=== PATIENT | male | born 1945 | race Caucasian/White ===

== ENCOUNTER 2019-03-31 13:35 | Inpatient (IN) | payer OTHER ==
[~2019-03-31] VITALS: Ht 182.9 cm; Wt 67.1 kg
[~2019-03-31 13:35] MED LIST: ACET325 PO; ACIDOPHILUS PO; AMLO5 PO; ASPI325 PO; ASPI325EC PO; ASPI81CH; ATEN25 PO; ATENOLOL-? DOSE; CEPH500 PO; CIPR500 PO; CYAN1000 PO; DOCU100 PO; FERR325 PO; FURO20 PO; HYDCHL25; LISI10; LISI20 PO; LISI5 PO; MAGOXI400 PO; METR500 PO; MULVITB&C PO; MULVITMIND PO; NITR100 PO; OMEP10ER; OMEP10ER PO; OMEP20ER; OMEP20ER PO; POTA10T PO; PROBIOTIC; Prilosec Otc20 MG PO; QUET25 PO; SULTRIDS PO; TAMS.4ER PO; THIA100 PO; VANC250 PO; WARF1 PO
[2019-03-31 14:21] LABS: Hematocrit 32.3 % (37.0-53.0); Hemoglobin 11.1 g/dL (13.5-17.5); Mean Corpuscular HGB 33.8 pg (26.0-34.0); Mean Corpuscular HGB Conc 34.4 g/dL (31.5-36.5); Mean Corpuscular Volume 99 fL (80-100); Mean Platelet Volume 11.7 fL (9.1-12.4); Platelet Count 86 K/mm3 (150-400); RDW Coefficient Variation 12.9 % (11.7-14.2); RDW Standard Deviation 46.5 fL (35.1-46.3); Red Blood Cell Count 3.28 M/mm3 (4.30-5.90); White Blood Cell Count 13.17 K/mm3 (4.00-11.30)
[2019-03-31 14:29] LABS: Albumin, Blood 3.3 g/dL (3.4-5.0); Albumin/Globulin Ratio 0.7 (0.8-1.8); Bilirubin, Total 0.8 mg/dL (0.1-1.0); Bun/Creatinine Ratio 12.5 (12.0-20.0); Calcium, Blood 8.4 mg/dL (8.5-10.1); Creatinine, Blood 1.36 mg/dL (0.60-1.20); Globulin, Blood 4.5 g/dL (2.2-4.0); Potassium, Blood 3.6 mmol/L (3.5-5.5); Total Protein, Blood 7.8 g/dL (6.4-8.2)
[2019-03-31] MEDS ORDERED: DULO60 PO (14:34)
[2019-03-31] MEDS ORDERED: Ferrous Glucon324 M1 PO (14:35)
[2019-03-31] MEDS ORDERED: NIFE30ER PO (14:35)
[2019-03-31] MEDS ORDERED: FOLI1 PO (14:35)
[2019-03-31] MEDS ORDERED: LISI20 PO (14:35)
[2019-03-31] MEDS ORDERED: Thiamine HCl100 MG PO (14:37)
[2019-03-31] MEDS ORDERED: NITR100CA (14:37)
[2019-03-31] MEDS ORDERED: OMEPRAZOLE20 MG PO (14:37)
[2019-03-31 14:59] LABS: BASOPHILS PERCENT MAN 0 % (0-2); EOSINOPHILS ABSOLUTE MAN 0.26 K/mm3 (0.00-0.68); EOSINOPHILS PERCENT MAN 2 % (0-6); LYMPHOCYTES ABSOLUTE MAN 1.05 K/mm3 (0.84-5.20); LYMPHOCYTES PERCENT MAN 8 % (21-46); MONOCYTES ABSOLUTE MAN 3.02 K/mm3 (0.16-1.47); MONOCYTES PERCENT MAN 23 % (4-13); NEUTROPHILS ABSOLUTE MAN 8.82 K/mm3 (1.96-9.15); SEG NEUTROPHILS PERCENT MAN 67 % (41-73); TOTAL CELLS COUNTED 100
[2019-03-31 15:05] LABS: Source, Urine Catheter
[2019-03-31 15:09] LABS: Bilirubin, Urine Neg (Neg); Blood, Urine 5+ (Neg); Glucose Qualitative, Urine Neg (Neg); Ketones, Urine Neg (Neg); Leukocyte Esterase, Urine 3+ (Neg); Nitrite, Urine Neg (Neg); Protein, Urine 3+ (Neg); Urobilinogen, Urine NORM (Normal)
[2019-03-31 15:26] LABS: Appearance, Urine Cloudy (Clear); Color, Urine Yellow (P-Yellow)
[2019-03-31 15:28] LABS: Amorphous Light (0-Heavy); Bacteria Many /hpf; Red Blood Cells, Urine 25-50 /hpf (0-2); Squamous Epithelial Cells Mod /hpf (Few)
[2019-03-31 15:29] LABS: White Blood Cells, Urine 50-100 /hpf (0-5)
[2019-03-31] MEDS ORDERED: Aspirin EC81 MG PO (16:04)
[2019-03-31] MEDS ORDERED: THERA1 EACH PO (16:05)
[2019-03-31] MEDS ORDERED: Vitamin D2000 UNIT PO (16:05)
[2019-04-01 05:11] LABS: BASOPHILS PERCENT AUTO 0 % (0-2); EOSINOPHILS ABSOLUTE AUTO 0.08 K/mm3 (0.00-0.68); EOSINOPHILS PERCENT AUTO 1 % (0-6); Hemoglobin 10.9 g/dL (13.5-17.5); IMMATURE GRAN ABSOLUTE AUTO 0.04 K/mm3 (0.00-0.10); IMMATURE GRAN PERCENT AUTO 1 % (0-1); LYMPHOCYTES ABSOLUTE AUTO 1.21 K/mm3 (0.84-5.20); LYMPHOCYTES PERCENT AUTO 19 % (21-46); MONOCYTES ABSOLUTE AUTO 2.26 K/mm3 (0.16-1.47); MONOCYTES PERCENT AUTO 35 % (4-13); Mean Corpuscular HGB 33.9 pg (26.0-34.0); Mean Corpuscular HGB Conc 34.1 g/dL (31.5-36.5); Mean Corpuscular Volume 99 fL (80-100); Mean Platelet Volume 12.2 fL (9.1-12.4); NEUTROPHILS ABSOLUTE AUTO 2.84 K/mm3 (1.96-9.15); NEUTROPHILS PERCENT AUTO 44 % (41-73); Platelet Count 75 K/mm3 (150-400); RDW Coefficient Variation 13.1 % (11.7-14.2); RDW Standard Deviation 47.8 fL (35.1-46.3); Red Blood Cell Count 3.22 M/mm3 (4.30-5.90); White Blood Cell Count 6.43 K/mm3 (4.00-11.30)
--- NOTE | 2019-04-01 05:19 | NUR ---
SHIFT SUMMARY ARRIVED TO MEDICAL FLOOR @ . ORIENTED TO ROOM AND CALL SYSTEM. AT BEDSIDE. A/O, ABLE TO MAKE NEEDS KNOWN. COOPERATIVE WITH CARE. CALLS AND ANSWERS QUESTIONS APPROPRIATLEY. [place]Y [place]. STATES WENT TO [facility] X2 DAYS AGO; REFERRED TO UROLOGY CLINIC IN WHICH UROLOGIST CLEANED OUT URETHRA AND PLACED NGUYEN R/T RETENTION. OFTEN TIMES SELF-CATH'S AT HOME. APPEARED TO REST SOME OF SHIFT. NO ACUTE CHANGES NOTED AT THIS TIME. VSS/AFEBRILE. BED REMAINED IN LOWEST POSITION. CALL LIGHT AND BELONGINGS WITHIN REACH. REPORT TO ONCOMING RN.
[2019-04-01 05:30] LABS: Alanine Aminotransfer (ALT/SGP 15 U/L (12-78); Albumin, Blood 2.9 g/dL (3.4-5.0); Albumin/Globulin Ratio 0.7 (0.8-1.8); Alk Phos 100 U/L (50-136); Anion Gap 7 mmol/L (6-16); Aspartate Aminotrans (AST/SGOT 16 U/L (12-37); Bilirubin, Total 0.4 mg/dL (0.1-1.0); Blood Urea Nitrogen 16 mg/dL (8-24); CO2, Blood 26 mmol/L (21-32); Chloride, Blood 102 mmol/L (98-108); Creatinine, Blood 1.07 mg/dL (0.60-1.20); Glomerular Filtration Rate >60 (60-); Glucose, Blood 94 mg/dL (70-99); Potassium, Blood 3.4 mmol/L (3.5-5.5); Sodium, Blood 135 mmol/L (136-145); Total Protein, Blood 6.9 g/dL (6.4-8.2)
[2019-04-01] MEDS ORDERED: DOXY100 PO (11:00)
--- NOTE | 2019-04-01 15:01 | NUR ---
SHIFT SUMMARY PT AWAKE DURING SHIFT REPORT. PLEASANT AND CO-OP WITH CARE. DENIED NEEDS. VSS. NO C/O DIZZINESS. CALL LT IN REACH. PT ABLE TO AMBULATE TO BTHRM WITH CANE AND 1P ASSIST FOR BM. NGUYEN CATH WITH LEG BAG FROM [facility]. DR RANDOLPH IN TO SEE PT THIS AM. D/C ORDERS PLACED. PT'S IN AFTER DR RANDOLPH LEFT, REPORTING THAT PT IS NONCOMPLIANT AT HOME WITH CATHETER CARE AND TAKING CARE OF HIMSELF. REPORTED PT WANTING TO DRINK ALCOHOL AND WANTING HER TO BUY BEER, CAUSING CONFLICT WHEN SHE DECLINES. ALSO REPORTED PT IS NOT CAREFUL ABOUT INFECTION CONTROL WHEN PERFORMING STRAIGHT CATH AT HOME AND LIES ABOUT FLUID INTAKE TO HER. DR RANDOLPH UPDATED. REPORTED THAT SHE WILL F/U WITH [facility] IN AM. IV TO RFA D/C'D WNL'S. TELE MX REMOVED AFTER MX TECH NOTIFIED OF D/C. PT WAITED FOR TO RETURN TO TAKE PT HOME THIS AFTERNOON. TAKEN OUT TO CAR VIA W/C BY SUZAN RN.
== END 2019-04-01 13:36 | disposition home or self-care (01) | DRG 871 ==
LOC: ER 13:35 → MEDS 16:58
PROVIDERS: Physician Assistant; ADMIT Internal Medicine
DX: A41.9 Sepsis, unspecified organism (principal); R65.21 Severe sepsis with septic shock; N39.0 Urinary tract infection, site not specified; I48.0 Paroxysmal atrial fibrillation; Z79.01 Long term (current) use of anticoagulants; F10.20 Alcohol dependence, uncomplicated; I10 Essential (primary) hypertension; N32.0 Bladder-neck obstruction; R33.9 Retention of urine, unspecified; Z87.891 Personal history of nicotine dependence
CPT/HCPCS: 36415; 71045; 80053; 81001; 83605; 85025; 87040; 87077; 87086; 87186; 93005; 93010; 96361; 96365; 99285-25; J0696; J1644; J7030; J7120

== ENCOUNTER 2021-03-14 17:54 | Inpatient (IN) | payer OTHER ==
[~2021-03-14] VITALS: Ht 177.8 cm; Wt 63.7 kg
[~2021-03-14 17:54] MED LIST changes: +Aspirin EC81 MG PO; +DOXY100 PO; +DULO60 PO; +FOLI1 PO; +Ferrous Glucon324 M1 PO; +NIFE30ER PO; +NITR100CA; +OMEPRAZOLE20 MG PO; +THERA1 EACH PO; +Thiamine HCl100 MG PO; +Vitamin D2000 UNIT PO
[2021-03-14 19:11] LABS: BASOPHILS ABSOLUTE AUTO 0.01 K/mm3 (0.00-0.23); BASOPHILS PERCENT AUTO 0 % (0-2); EOSINOPHILS ABSOLUTE AUTO 0.05 K/mm3 (0.00-0.68); EOSINOPHILS PERCENT AUTO 1 % (0-6); Hematocrit 35.2 % (37.0-53.0); Hemoglobin 12.1 g/dL (13.5-17.5); Mean Corpuscular HGB 32.7 pg (26.0-34.0); Mean Corpuscular HGB Conc 34.4 g/dL (31.5-36.5); Mean Corpuscular Volume 95 fL (80-100); RDW Coefficient Variation 14.2 % (11.7-14.2); RDW Standard Deviation 49.6 fL (35.1-46.3); White Blood Cell Count 6.67 K/mm3 (4.00-11.30)
[2021-03-14 19:25] LABS: Alanine Aminotransfer (ALT/SGP 25 U/L (12-78); Albumin, Blood 3.8 g/dL (3.4-5.0); Albumin/Globulin Ratio 0.8 (0.8-1.8); Alk Phos 136 U/L (50-136); Anion Gap 14 mmol/L (6-16); Aspartate Aminotrans (AST/SGOT 35 U/L (12-37); Bilirubin, Total 0.9 mg/dL (0.1-1.0); Blood Urea Nitrogen 23 mg/dL (8-24); Bun/Creatinine Ratio 21.3 (12.0-20.0); CO2, Blood 19 mmol/L (21-32); Calcium, Blood 8.1 mg/dL (8.5-10.1); Chloride, Blood 97 mmol/L (98-108); Creatinine, Blood 1.08 mg/dL (0.60-1.20); Ethanol (Alcohol), Blood, Med <3 mg/dL; Globulin, Blood 4.8 g/dL (2.2-4.0); Glomerular Filtration Rate >60 (60-); Glucose, Blood 102 mg/dL (70-99); Potassium, Blood 4.3 mmol/L (3.5-5.5); Sodium, Blood 130 mmol/L (136-145); Total Protein, Blood 8.6 g/dL (6.4-8.2); Troponin I <0.015 ng/mL (0.000-0.040)
[2021-03-14 19:31] LABS: IMMATURE GRAN ABSOLUTE AUTO 0.04 K/mm3 (0.00-0.10); IMMATURE GRAN PERCENT AUTO 1 % (0-1); LYMPHOCYTES ABSOLUTE AUTO 1.16 K/mm3 (0.84-5.20); LYMPHOCYTES PERCENT AUTO 17 % (21-46); MONOCYTES ABSOLUTE AUTO 2.99 K/mm3 (0.16-1.47); MONOCYTES PERCENT AUTO 45 % (4-13); NEUTROPHILS ABSOLUTE AUTO 2.42 K/mm3 (1.96-9.15); NEUTROPHILS PERCENT AUTO 36 % (41-73)
[2021-03-14 19:35] LABS: Platelet Count 39 K/mm3 (150-400)
[2021-03-14] MEDS ORDERED: ATEN25 PO (20:10)
[2021-03-14] MEDS ORDERED: Acerola C500 MG PO (20:10)
[2021-03-14] MEDS ORDERED: CALCIUM CITRAT200 MG PO (20:11)
[2021-03-14 20:48] LABS: Source, Urine Clean Catch
[2021-03-14 20:51] LABS: Appearance, Urine Clear (Clear); Bilirubin, Urine Neg (Neg); Blood, Urine 5+ (Neg); Color, Urine Yellow (P-Yellow); Glucose Qualitative, Urine Neg (Neg); Ketones, Urine 2+ (Neg); Leukocyte Esterase, Urine 3+ (Neg); Nitrite, Urine Neg (Neg); Protein, Urine 3+ (Neg); Urobilinogen, Urine NORM (Normal)
[2021-03-14 20:53] LABS: SARS-Cov-2 (COVID-19) PCR, MMC POSITIVE (NEGATIVE)
[2021-03-14 20:57] LABS: Bacteria Many /hpf; White Blood Cells, Urine 25-50 /hpf (0-5)
[2021-03-14 20:58] LABS: Red Blood Cells, Urine 0-2 /hpf (0-2); Squamous Epithelial Cells Few /hpf (Few)
--- NOTE | 2021-03-15 06:25 | NUR ---
SHIFT SUMMARY PATIENT ALERT AND ORIENTED. HAD NO COMPLAINTS OF PAIN OR SHORTNESS OF BREATH. ON ROOM AIR. NO ACUTE ISSUES NOTED. CALL LIGHT WITHIN REACH. REPORT GIVEN TO ONCOMING RN.
[2021-03-15 06:54] LABS: BASOPHILS ABSOLUTE AUTO 0.01 K/mm3 (0.00-0.23); BASOPHILS PERCENT AUTO 0 % (0-2); EOSINOPHILS PERCENT AUTO 0 % (0-6); Hematocrit 34.2 % (37.0-53.0); Hemoglobin 11.9 g/dL (13.5-17.5); Mean Corpuscular HGB 33.8 pg (26.0-34.0); Mean Corpuscular HGB Conc 34.8 g/dL (31.5-36.5); Mean Corpuscular Volume 97 fL (80-100); RDW Coefficient Variation 14.5 % (11.7-14.2); RDW Standard Deviation 51.4 fL (35.1-46.3); Red Blood Cell Count 3.52 M/mm3 (4.30-5.90); White Blood Cell Count 9.49 K/mm3 (4.00-11.30)
[2021-03-15 06:56] LABS: IMMATURE GRAN PERCENT AUTO 1 % (0-1); LYMPHOCYTES ABSOLUTE AUTO 1.24 K/mm3 (0.84-5.20); LYMPHOCYTES PERCENT AUTO 13 % (21-46); MONOCYTES ABSOLUTE AUTO 5.99 K/mm3 (0.16-1.47); MONOCYTES PERCENT AUTO 63 % (4-13); NEUTROPHILS ABSOLUTE AUTO 2.15 K/mm3 (1.96-9.15); NEUTROPHILS PERCENT AUTO 23 % (41-73); Platelet Count 36 K/mm3 (150-400)
[2021-03-15 07:11] LABS: Albumin, Blood 3.2 g/dL (3.4-5.0); Albumin/Globulin Ratio 0.7 (0.8-1.8); Bilirubin, Total 0.6 mg/dL (0.1-1.0); Bun/Creatinine Ratio 19.5 (12.0-20.0); Creatinine, Blood 1.49 mg/dL (0.60-1.20); Globulin, Blood 4.5 g/dL (2.2-4.0); Magnesium, Blood 2.2 mg/dL (1.6-2.4); Potassium, Blood 3.7 mmol/L (3.5-5.5); Total Protein, Blood 7.7 g/dL (6.4-8.2)
[2021-03-15 07:30] LABS: BAND PERCENT MAN 1 % (0-8); BASOPHILS PERCENT MAN 0 % (0-2); EOSINOPHILS ABSOLUTE MAN 0.18 K/mm3 (0.00-0.68); EOSINOPHILS PERCENT MAN 2 % (0-6); LYMPHOCYTES ABSOLUTE MAN 1.42 K/mm3 (0.84-5.20); LYMPHOCYTES PERCENT MAN 15 % (21-46); MONOCYTES ABSOLUTE MAN 5.02 K/mm3 (0.16-1.47); MONOCYTES PERCENT MAN 53 % (4-13); NEUTROPHILS ABSOLUTE MAN 2.84 K/mm3 (1.96-9.15); SEG NEUTROPHILS PERCENT MAN 29 % (41-73); TOTAL CELLS COUNTED 100
--- NOTE | 2021-03-15 16:30 | NUR ---
CATHETER ORDER PT REPORTS HAVING URINARY RETENTION AT HOME AND SELF CATHS OCCATIONALLY. WHEN PT WAS BLADDER SCANNED, HE HAD 238 IN HIS BLADDER AFTER VOIDING. DR. HEBERT NOTIFIED OF THIS CONCERN AND ORDER FOR NGUYEN CATH WAS OBTAINED.
--- NOTE | 2021-03-15 17:30 | NUR ---
FEVER UPON ENTERING PT ROOM TO HANG FLUID, PT WAS DISORIENTED. TALKING ABOUT HELDER AND HER PLAN FOR A COLONOSCOPY ON THE . PT APPEARED TO BE UNCLEAR ON WHY HE WAS IN THE HOSPITAL WHICH WAS A CHANGE. TEMP TAKEN AND WAS 103.9. 650MG PO TYLENOL GIVEN. ICE APPLED TO HIS BODY AND A FAN PLACED OVERTOP OF HIM. TEMP REDUCED TO 102.7 NOW. BERNARDO IN PALLIATIVE CARE NOTIFIED PROVIDER AND A RECTAL TYLENOL WAS ORDERED TO GIVE ONE TIME. PT PHYSICALLY FEELS COOLER AND IS LESS DISORIENTED.
--- NOTE | 2021-03-15 18:46 | NUR ---
SHIFT SUMMARY TEMP DECREASED TO 101.5. ONE TIME 1000 MG TYLENOL GIVEN. ORIENTION HAS IMPROVED FROM HIS HIGHER FEVER. UPDATED BY PALLIATIVE CARE, BERNARDO. BED ALARM IN PLACE. REDNESS FOUND TO SACRUM. PT ENCOURAGED TO REPOSITION IN BED. NGUYEN ATTEMPTED, BUT WAS TOO LARGE A SIZE. COUDE LIKELY NEEDED. NO OTHER CHANGES IN ASSESSMENT AT THIS TIME. VS REVIEWED.
--- NOTE | 2021-03-15 22:17 | NUR ---
PATIENT REFUSING URINARY CATHETER AT THIS TIME. REPORTS HE IS VOIDING AND KNOWS IF HE IS RETAINING URINE. TM
--- NOTE | 2021-03-16 04:25 | NUR ---
SHIFT SUMMARY PATIENT HAD NO ACUTE CHANGES OBSERVED. AXO X 3 AND BEDREST. PATIENT VOIDING AND REFUSING NGUYEN PLACEMENT REPORTING HE KNOWS IF HE IS RETAINING. PIV REMAINS INTACT. VSS/LOW GRADE TEMP. DENIES PAIN, SOB, AND N/V. CALL LIGHT IN REACH. BED IN LOWEST POSITION. WILL CONTINUE TO MONITOR UNTIL DAY SHIFT NURSE ASSUME CARE.
[2021-03-16 04:54] LABS: BASOPHILS ABSOLUTE AUTO 0.01 K/mm3 (0.00-0.23); BASOPHILS PERCENT AUTO 0 % (0-2); EOSINOPHILS ABSOLUTE AUTO 0.01 K/mm3 (0.00-0.68); EOSINOPHILS PERCENT AUTO 0 % (0-6); Hematocrit 36.4 % (37.0-53.0); Hemoglobin 12.5 g/dL (13.5-17.5); Mean Corpuscular HGB 33.2 pg (26.0-34.0); Mean Corpuscular HGB Conc 34.3 g/dL (31.5-36.5); Mean Corpuscular Volume 97 fL (80-100); RDW Coefficient Variation 14.2 % (11.7-14.2); RDW Standard Deviation 50.4 fL (35.1-46.3); Red Blood Cell Count 3.76 M/mm3 (4.30-5.90)
[2021-03-16 05:11] LABS: Anion Gap 8 mmol/L (6-16); Blood Urea Nitrogen 21 mg/dL (8-24); Bun/Creatinine Ratio 21.3 (12.0-20.0); CO2, Blood 21 mmol/L (21-32); Calcium, Blood 8.1 mg/dL (8.5-10.1); Chloride, Blood 101 mmol/L (98-108); Creatinine, Blood 0.99 mg/dL (0.60-1.20); Glomerular Filtration Rate >60 (60-); Glucose, Blood 89 mg/dL (70-99); Sodium, Blood 130 mmol/L (136-145)
[2021-03-16 05:12] LABS: IMMATURE GRAN PERCENT AUTO 1 % (0-1); LYMPHOCYTES ABSOLUTE AUTO 1.32 K/mm3 (0.84-5.20); LYMPHOCYTES PERCENT AUTO 15 % (21-46); MONOCYTES ABSOLUTE AUTO 3.95 K/mm3 (0.16-1.47); MONOCYTES PERCENT AUTO 44 % (4-13); Mean Platelet Volume 13.9 fL (9.1-12.4); NEUTROPHILS ABSOLUTE AUTO 3.61 K/mm3 (1.96-9.15); NEUTROPHILS PERCENT AUTO 40 % (41-73); Platelet Count 30 K/mm3 (150-400)
--- NOTE | 2021-03-16 17:18 | NUR ---
PT HAS BEEN AOX4 AND COOPERATIVE OF CARE TODAY. PT DID NOT SPIKE A FEVER TODAY AND HAS BEEN FEELING MORE ALERT. PT WORKED WITH PT AND WAS ABLE TO STAND AT BEDSIDE. PT REPORTED HE NEEDED TO BE STRAIGHT CATHED AND DID NOT WANT A NGUYEN TO BE PLACED ORDER WAS GIVEN FROM DR ESCALANTE FOR PT TO SELF STRAIGHT CATH. PT DOES NEED SUPERVISION AND HELP FROM NURSE. PT ALSO HAS MULTIPLE LOOSE STOOL AND DR ESCALANTE ADDED MEDICTION TO EMAR. ORDER TO TREAT SKIN IRRITATION WAS ALSO ADDED TO EMAR. PT RESTING IN BED AT THIS TIME WITH CALL LIGHT IN REACH WILL CONTINUE TO MONITOR.
--- NOTE | 2021-03-17 03:00 | NUR ---
ACCESS SERVICES ASSISTANT SUMMARY HAS BEEN RESTING QUIETLY AT INTERVALS. DENIED PAIN AND LOSS OF FEELING. IVF OF NS CONTINUES AT 75 ML/HR. BUTTOCKS/COCCYX AREA RED DISCOLORATOIN AND NOTED SMALL OPEN AREA, MEPILEX APPLIED TO AREA FOR PROTECTION. CALL LIGHT IN REACH. ISOLATOIN PRECAUTIONS MAINTAINED.
[2021-03-17 05:31] LABS: BASOPHILS ABSOLUTE AUTO 0.01 K/mm3 (0.00-0.23); BASOPHILS PERCENT AUTO 0 % (0-2); EOSINOPHILS PERCENT AUTO 0 % (0-6); Hemoglobin 12.4 g/dL (13.5-17.5); Mean Corpuscular HGB Conc 34.4 g/dL (31.5-36.5); Mean Corpuscular Volume 96 fL (80-100); RDW Coefficient Variation 14.1 % (11.7-14.2); RDW Standard Deviation 49.8 fL (35.1-46.3); Red Blood Cell Count 3.76 M/mm3 (4.30-5.90); White Blood Cell Count 7.02 K/mm3 (4.00-11.30)
[2021-03-17 05:52] LABS: IMMATURE GRAN ABSOLUTE AUTO 0.09 K/mm3 (0.00-0.10); IMMATURE GRAN PERCENT AUTO 1 % (0-1); LYMPHOCYTES ABSOLUTE AUTO 1.12 K/mm3 (0.84-5.20); LYMPHOCYTES PERCENT AUTO 16 % (21-46); MONOCYTES ABSOLUTE AUTO 3.28 K/mm3 (0.16-1.47); MONOCYTES PERCENT AUTO 47 % (4-13); Mean Platelet Volume 13.3 fL (9.1-12.4); NEUTROPHILS ABSOLUTE AUTO 2.52 K/mm3 (1.96-9.15); NEUTROPHILS PERCENT AUTO 36 % (41-73); Platelet Count 25 K/mm3 (150-400)
[2021-03-17 05:57] LABS: Alanine Aminotransfer (ALT/SGP 24 U/L (12-78); Albumin/Globulin Ratio 0.7 (0.8-1.8); Alk Phos 102 U/L (50-136); Anion Gap 8 mmol/L (6-16); Aspartate Aminotrans (AST/SGOT 48 U/L (12-37); Bilirubin, Total 0.6 mg/dL (0.1-1.0); Blood Urea Nitrogen 18 mg/dL (8-24); Bun/Creatinine Ratio 19.5 (12.0-20.0); CO2, Blood 21 mmol/L (21-32); Calcium, Blood 7.5 mg/dL (8.5-10.1); Chloride, Blood 102 mmol/L (98-108); Creatinine, Blood 0.92 mg/dL (0.60-1.20); Globulin, Blood 4.1 g/dL (2.2-4.0); Glomerular Filtration Rate >60 (60-); Glucose, Blood 83 mg/dL (70-99); Potassium, Blood 3.6 mmol/L (3.5-5.5); Sodium, Blood 131 mmol/L (136-145); Total Protein, Blood 7.1 g/dL (6.4-8.2)
[2021-03-17] MEDS ORDERED: SULTRIDS PO (12:27)
--- NOTE | 2021-03-17 15:31 | NUR ---
DISCHARGE SUMMARY PATIENT WAS EDUCATED ON DISCHARGE INSTRUCTIONS. NO ACUTE EVENTS DURING SHIFT. PATIENTS IV WAS REMOVED WNL. PATIENTS BELONGINGS WERE WITH PATIENT ON DISCHARGE PATIENT WAS WHEELED VIA WHEELCHAIR OUT TO CAR WITH WAITING. WAS EDUCATED ON FOLLOWUP APPOINTMENT AND DISCHARGE INSTRUCTIONS.
== END 2021-03-17 14:35 | disposition home or self-care (01) | DRG 698 ==
LOC: ER 17:54 → MEDS 22:15
PROVIDERS: Emergency Medicine Emergency Medical Services; Internal Medicine; ADMIT Internal Medicine
PROC: 8E0ZXY6 Isolation (ICD-10-PCS; principal; 2021-03-14)
DX: T83.511A Infection and inflammatory reaction due to indwelling urethral catheter, initial encounter (principal); A41.02 Sepsis due to Methicillin resistant Staphylococcus aureus; U07.1 COVID-19; I48.20 Chronic atrial fibrillation, unspecified; E87.1 Hypo-osmolality and hyponatremia; N17.9 Acute kidney failure, unspecified; N39.0 Urinary tract infection, site not specified; S09.90XA Unspecified injury of head, initial encounter; E83.42 Hypomagnesemia; D69.6 Thrombocytopenia, unspecified; N32.0 Bladder-neck obstruction; D75.9 Disease of blood and blood-forming organs, unspecified; R33.9 Retention of urine, unspecified; G30.9 Alzheimer's disease, unspecified; F02.80 Dementia in other diseases classified elsewhere, unspecified severity, without behavioral disturbance, psychotic disturbance, mood disturbance, and anxiety; I73.9 Peripheral vascular disease, unspecified; I12.9 Hypertensive chronic kidney disease with stage 1 through stage 4 chronic kidney disease, or unspecified chronic kidney disease; N18.9 Chronic kidney disease, unspecified; F10.20 Alcohol dependence, uncomplicated; Z79.82 Long term (current) use of aspirin; Z79.899 Other long term (current) drug therapy; Z87.891 Personal history of nicotine dependence; Z98.890 Other specified postprocedural states; W19.XXXA Unspecified fall, initial encounter; Y84.6 Urinary catheterization as the cause of abnormal reaction of the patient, or of later complication, without mention of misadventure at the time of the procedure
CPT/HCPCS: 36415; 70450; 71045; 80048; 80053; 81001; 82947; 83605; 83735; 84100; 84484; 85025; 87040; 87077; 87086; 87186; 93005; 93010; 96365; 96366; 96367; 97116; 97162; 99285-25; A9270; G0480; J0696; J3370; J3475; J7030; J7050; J7120; U0004

== ENCOUNTER 2021-09-17 13:40 | Emergency (ER) | payer OTHER ==
[~2021-09-17] VITALS: Ht 180.3 cm; Wt 61.2 kg
[~2021-09-17 13:40] MED LIST changes: +ATOR40TA PO; +Acerola C500 MG PO; +Aspir 8181 MG PO; +B-1100 M1 PO; +CALCIUM CITRAT200 MG PO; +CLOP75 PO; +Flomax0.4 MG PO; +NEOPOLDEXO BOTHEYES
[2021-09-17 14:47] LABS: Hemoglobin 9.6 g/dL (13.5-17.5); Mean Corpuscular HGB 32.1 pg (26.0-34.0); Mean Corpuscular HGB Conc 33.1 g/dL (31.5-36.5); Mean Corpuscular Volume 97 fL (80-100); Platelet Count 67 K/mm3 (150-400); RDW Coefficient Variation 15.3 % (11.7-14.2); RDW Standard Deviation 53.6 fL (35.1-46.3); Red Blood Cell Count 2.99 M/mm3 (4.30-5.90)
[2021-09-17 14:53] LABS: Mean Platelet Volume 13.2 fL (9.1-12.4); White Blood Cell Count 35.86 K/mm3 (4.00-11.30)
[2021-09-17 15:01] LABS: Alanine Aminotransfer (ALT/SGP 151 U/L (12-78); Albumin, Blood 3.3 g/dL (3.4-5.0); Albumin/Globulin Ratio 0.8 (0.8-1.8); Alk Phos 258 U/L (50-136); Anion Gap 6 mmol/L (6-16); Aspartate Aminotrans (AST/SGOT 209 U/L (12-37); Bilirubin, Total 3.9 mg/dL (0.1-1.0); Blood Urea Nitrogen 23 mg/dL (8-24); Bun/Creatinine Ratio 23.7 (12.0-20.0); CO2, Blood 28 mmol/L (21-32); Calcium, Blood 9.1 mg/dL (8.5-10.1); Chloride, Blood 103 mmol/L (98-108); Creatinine, Blood 0.97 mg/dL (0.60-1.20); Globulin, Blood 4.4 g/dL (2.2-4.0); Glomerular Filtration Rate >60 (60-); Glucose, Blood 98 mg/dL (70-99); Potassium, Blood 3.5 mmol/L (3.5-5.5); Sodium, Blood 137 mmol/L (136-145); Total Protein, Blood 7.7 g/dL (6.4-8.2)
[2021-09-17 15:12] LABS: BAND PERCENT MAN 3 % (0-8); BASOPHILS PERCENT MAN 0 % (0-2); EOSINOPHILS PERCENT MAN 0 % (0-6); LYMPHOCYTES ABSOLUTE MAN 0.71 K/mm3 (0.84-5.20); LYMPHOCYTES PERCENT MAN 2 % (21-46); MONOCYTES ABSOLUTE MAN 6.45 K/mm3 (0.16-1.47); MONOCYTES PERCENT MAN 18 % (4-13); NEUTROPHILS ABSOLUTE MAN 28.68 K/mm3 (1.96-9.15); SEG NEUTROPHILS PERCENT MAN 77 % (41-73); TOTAL CELLS COUNTED 100
[2021-09-17 16:18] LABS: Source, Urine Foley catheter
[2021-09-17 16:24] LABS: Appearance, Urine Hazy (Clear); Blood, Urine 2+ (Neg); Color, Urine Yellow (P-Yellow); Glucose Qualitative, Urine Neg (Neg); Ketones, Urine Neg (Neg); Leukocyte Esterase, Urine 2+ (Neg); Nitrite, Urine Pos (Neg); Protein, Urine 2+ (Neg); Specific Gravity, Urine 1.005 (1.003-1.022); Urobilinogen, Urine 2+ (Normal)
[2021-09-17 17:02] LABS: Bilirubin, Urine 2+ (Neg)
[2021-09-17 17:03] LABS: Bacteria Many /hpf; Hyaline Casts 0-2 /lpf (0-2); Squamous Epithelial Cells Rare /hpf (Few); White Blood Cells, Urine 25-50 /hpf (0-5)
[2021-09-17 19:44] LABS: Influenza A, PCR NEGATIVE (NEGATIVE); Influenza B, PCR NEGATIVE (NEGATIVE); Resp Syncytial Virus, PCR NEGATIVE (NEGATIVE); SARS-Cov-2 (COVID-19) PCR, MMC NEGATIVE (NEGATIVE)
== END 2021-09-17 22:01 | disposition short-term general hospital (02) ==
LOC: ER 13:40
PROVIDERS: Emergency Medicine
DX: A41.9 Sepsis, unspecified organism (principal); K80.50 Calculus of bile duct without cholangitis or cholecystitis without obstruction; N39.0 Urinary tract infection, site not specified; I10 Essential (primary) hypertension; Z79.899 Other long term (current) drug therapy
CPT/HCPCS: 0241U; 74176; 76705; 80053; 81001; 83605; 83690; 85025; 87086; 96365; 96366; 96375; 99285-25; J2270; J2543

== ENCOUNTER 2023-02-13 17:32 | Emergency (ER) | payer OTHER ==
[~2023-02-13] VITALS: Ht 177.8 cm; Wt 68.0 kg
[~2023-02-13 17:32] MED LIST changes: +CENTRUM SILVER1 EAC2 PO
[2023-02-13 20:27] VITALS: BP 124/76
== END 2023-02-13 20:30 | disposition home or self-care (01) ==
LOC: ER 17:32
DX: Z01.30 Encounter for examination of blood pressure without abnormal findings (principal); Z79.899 Other long term (current) drug therapy
CPT/HCPCS: 99281

== ENCOUNTER 2024-09-23 12:14 | Inpatient (IN) | payer OTHER ==
[~2024-09-23] VITALS: Ht 175.3 cm; Wt 67.9 kg
[2024-09-23 12:48] LABS: Hematocrit 22.1 % (37.0-53.0); Hemoglobin 7.2 g/dL (13.5-17.5); Mean Corpuscular HGB 31.3 pg (26.0-34.0); Mean Corpuscular HGB Conc 32.6 g/dL (31.5-36.5); Mean Corpuscular Volume 96 fL (80-100); Mean Platelet Volume 12.9 fL (9.1-12.4); Platelet Count 112 K/mm3 (150-400); RDW Coefficient Variation 18.9 % (11.7-14.2)
[2024-09-23 12:49] LABS: White Blood Cell Count 7.12 K/mm3 (4.00-11.30)
[2024-09-23 13:04] LABS: Albumin, Blood 3.4 g/dL (3.4-5.0); Albumin/Globulin Ratio 0.8 (0.8-1.8); Bilirubin, Total 0.4 mg/dL (0.1-1.0); Bun/Creatinine Ratio 12.5 (12.0-20.0); Calcium, Blood 8.3 mg/dL (8.5-10.1); Creatinine, Blood 0.96 mg/dL (0.60-1.20); Potassium, Blood 3.2 mmol/L (3.5-5.5); Total Protein, Blood 7.4 g/dL (6.4-8.2)
[2024-09-23 13:08] LABS: BASOPHILS PERCENT MAN 0 % (0-2); EOSINOPHILS PERCENT MAN 0 % (0-6); LYMPHOCYTES ABSOLUTE MAN 2.06 K/mm3 (0.84-5.20); LYMPHOCYTES PERCENT MAN 29 % (21-46); MONOCYTES ABSOLUTE MAN 1.56 K/mm3 (0.16-1.47); MONOCYTES PERCENT MAN 22 % (4-13); NEUTROPHILS ABSOLUTE MAN 3.48 K/mm3 (1.96-9.15); SEG NEUTROPHILS PERCENT MAN 49 % (41-73); TOTAL CELLS COUNTED 100
[2024-09-23 16:56] LABS: Source, Urine Foley catheter
[2024-09-23 17:02] LABS: Bilirubin, Urine Neg (Neg); Blood, Urine 5+ (Neg); Color, Urine Yellow (P-Yellow); Glucose Qualitative, Urine Neg (Neg); Ketones, Urine Neg (Neg); Leukocyte Esterase, Urine 2+ (Neg); Nitrite, Urine Neg (Neg); Protein, Urine 2+ (Neg); Specific Gravity, Urine 1.015 (1.003-1.022); Urobilinogen, Urine NORM (Normal)
[2024-09-23] MEDS ORDERED: Aspirin 325 MG Tab PO ONE (17:05)
[2024-09-23] MEDS ORDERED: Potassium Chloride 20 MEQ in NS 90 ML IV ONE (17:30)
[2024-09-23 17:39] LABS: Appearance, Urine Hazy (Clear)
[2024-09-23 17:40] LABS: Bacteria Mod /hpf; Mucus Light (0-Heavy); Squamous Epithelial Cells Rare /hpf (Few)
[2024-09-23] MEDS ORDERED: Dose Adjust by Pharmacy XX STA (17:57)
[2024-09-23] MEDS ORDERED: Potassium Chloride 20 MEQ/15 ML UDC PO ONE (18:00)
[2024-09-23] MEDS ORDERED: Heparin Sodium,Porcine/0.5 NS 500 ML IV SCH (18:00)
[2024-09-23] MEDS ORDERED: Heparin Sodium 5000 Units/ML 1ML MDV IV ONE (18:00)
[2024-09-23 18:04] LABS: Anti-Xa UFH, PHA Monitoring <0.10 IU/mL; International Normalized Ratio 1.09; Prothrombin Time Results 11.6 Sec (9.7-11.5)
[2024-09-23] MEDS ORDERED: NS 1,000 ML IV SCH ×2 (18:15→19:00)
[2024-09-23] MEDS ORDERED: Ondansetron HCl 2 MG / ML 2ML Vial IV PRN (18:15)
[2024-09-23] MEDS ORDERED: Metoprolol Tartrate 25 MG Tab PO SCH (21:00)
[2024-09-23 21:42] VITALS: BP 112/74
[2024-09-23 22:15] VITALS: BP 106/68
[2024-09-23 22:49] LABS: Hematocrit 22.5 % (37.0-53.0); Hemoglobin 7.3 g/dL (13.5-17.5)
[2024-09-23] MEDS ORDERED: NS 250 ML IV PRN (23:25)
[2024-09-23 23:53] VITALS: BP 103/76
[2024-09-23 23:55] VITALS: BP 103/76
[2024-09-23 23:59] VITALS: BP 107/60
[2024-09-24] VITALS (16 sets, daily range): BP systolic 101–123; BP diastolic 55–84
--- NOTE | 2024-09-24 01:44 | NUR ---
ARRIVAL TO PCU PT ARRIVED TO PCU ROOM 11 AROUND 2118, PT IS A+O X4. PT WITH HIM ON ARRIVAL. PT WAS SLIDE OVER ONTO PCU BED BY FOUR STAFF MEMBERS. HE IS PALE IN COLOR ON ARRIVAL, ONE UNIT OF PRBCs TRANSFUING ON ARRIVAL. HEPARIN GTT INFUSING PER EMAR. REPEAT HEGLOBIN LEVEL 7.3, CALL WAS PLACED TO THE MD DR. LEDESMA. SECOND UNIT OF PRBCs WAS ORDERED AND IS INFUSING NOW. PATIENT GERMAN THIS WELL, LUNG SOUNDS CLEAR, NO VISABLE REACTION TO BLOOD PRODUCTS NOTED. PT IS CURRENTLY RESTING IN BED WITH AT BED SIDE. BED IN LOWEST POSTION, CALL LIGHT IN REACH.
--- NOTE | 2024-09-24 02:52 | NUR ---
NURSE NOTE PT RESTING IN BED, SECOND UNIT OF PRBCs COMPLETED. PT GERMAN WELL, VSS, LUNG SOUNDS CLEAR. CALL LIGHT IN REACH.
[2024-09-24 04:09] LABS: Hematocrit 23.2 % (37.0-53.0); Hemoglobin 7.6 g/dL (13.5-17.5); Mean Corpuscular HGB 31.1 pg (26.0-34.0); Mean Corpuscular HGB Conc 32.8 g/dL (31.5-36.5); Mean Corpuscular Volume 95 fL (80-100); Mean Platelet Volume 12.6 fL (9.1-12.4); Platelet Count 103 K/mm3 (150-400); RDW Coefficient Variation 18.1 % (11.7-14.2); RDW Standard Deviation 58.7 fL (35.1-46.3); Red Blood Cell Count 2.44 M/mm3 (4.30-5.90)
[2024-09-24 04:10] LABS: White Blood Cell Count 7.62 K/mm3 (4.00-11.30)
[2024-09-24 04:23] LABS: Bun/Creatinine Ratio 18.6 (12.0-20.0); Creatinine, Blood 0.86 mg/dL (0.60-1.20); Potassium, Blood 3.8 mmol/L (3.5-5.5)
[2024-09-24 04:34] LABS: BASOPHILS PERCENT MAN 0 % (0-2); EOSINOPHILS ABSOLUTE MAN 0.07 K/mm3 (0.00-0.68); EOSINOPHILS PERCENT MAN 1 % (0-6); LYMPHOCYTES ABSOLUTE MAN 2.66 K/mm3 (0.84-5.20); LYMPHOCYTES PERCENT MAN 35 % (21-46); MONOCYTES ABSOLUTE MAN 1.82 K/mm3 (0.16-1.47); MONOCYTES PERCENT MAN 24 % (4-13); NEUTROPHILS ABSOLUTE MAN 3.04 K/mm3 (1.96-9.15); SEG NEUTROPHILS PERCENT MAN 40 % (41-73); TOTAL CELLS COUNTED 100
[2024-09-24] MEDS ORDERED: Dose Adjust by Pharmacy XX STA (04:34)
--- NOTE | 2024-09-24 05:46 | NUR ---
SHIFT SUMMARY PT IS A+O X3-4, ABLE TO MAKE NEEDS KNOWN CAN BE FORGETFUL AT TIMES. REMAINS AT BEDSIDE AND CAN HELP RELAY INFORMATION FOR PT. VSS. DENIES CHEST PAIN OR PRESSURE, HE DENIES NEEDS OF ANY KIND AT THIS TIME. LAST TROP 658 NO CHANGE IN PATIENT CONDITION. HEMGLOBIN OF 7.6 AFTER LAST UNIT OF PRBCs. PT HAS A NGUYEN CATH W/ LEG BAG DID NOT WANT TO CHANGE TO A BIGGER BAG WHEN OFFERED. PATIENT HAS DENIED ALL ORAL MEDICATIONS BUT IS COOPERATIVE WITH LAB DRAWS, HEPARIN GTT, AND BLOOD TRANSFUSION. PT HAS EXPRESSED HE WILL BE GOING HOME TODAY TO CELEBRATE THE HOLIDAY ('). HE HAS "BEERS AND BROTS AT HOME." BED IN LOWEST POSTION, CALL LIGHT IN REACH, WILL CONTINUE TO TREAT AND REPORT TO ONCOMING RN.
[2024-09-24] MEDS ORDERED: Omeprazole 20 MG CapCR PO SCH (06:00)
[2024-09-24] MEDS ORDERED: Atorvastatin 40 MG Tab PO SCH ×2 (09:00→21:00)
[2024-09-24] MEDS ORDERED: Tamsulosin HCl 0.4 MG Cap PO SCH (09:00)
[2024-09-24] MEDS ORDERED: Clopidogrel Bisulfate 75 MG Tab PO SCH (09:00)
[2024-09-24] MEDS ORDERED: Aspirin 81 MG Chew PO SCH (09:00)
[2024-09-24] MEDS ORDERED: Metoprolol Succinate 25 MG TABCR PO SCH (09:00)
[2024-09-24] MEDS ORDERED: Pantoprazole Sodium 40 MG Tab PO SCH (09:00)
[2024-09-24 18:29] LABS: Hematocrit 28.1 % (37.0-53.0); Hemoglobin 9.2 g/dL (13.5-17.5)
--- NOTE | 2024-09-24 18:47 | NUR ---
PT SUMMARY; PT ALERT AND ORIENTED X3, FORGETFUL AT TIMES. OCCUPATIONAL THERAPIST WAS ABLE TO DO COG EVAL, PT HAS MILD COGNITIVE ISSUES. PT WASNT ABLE TO WORK WITH PHYSICAL THERAPIST DENIES THE NEED FOR IT AT THIS TIME. PT HAS BEEN AMBULATING TO THE BATHROOM VIA CANE. REPORTED THAT THE PT IS UNABLE TO TAKE CARE OF HIMSELF AND MIGHT NEED PLACEMENT, CARROT HARVESTER IS WORKING ON GETTING [facility] AT THIS TIME. DR LYNCH CAME IN THIS MORNING ORDER TO STOP HEPARIN GTT DUE TO HX OF GI BLEED AND MADE SOME MEDICATION CHANGES. PT WAS REFUSING MEDS THIS MORNING WAS ABLE TO TAKE IT AFTER THIS RN ENCOURAGE AND EDUCATED HIM ABOUT THESE NEW MEDICATIONS. ALSO DR CABRAL CAME BY TO CONSENT PT TO TRANSFUSE BLOOD, WAS ABLE TO EXPLAIN TO PT THE NEED FOR BLOOD TRANSFUSION, ECHO SHOWS APICAL THROMBUS MD AWARE, WILL DISCUSS TOMORROW WITH DR LYNCH ABOUT PLAN AFTER PT RECEIVED BLOOD AND IF HGB IS >8. VITALS HRR SR/SB 50-60'S, SBP 100'S, SATS ABOVE 90% ON RA, AFEBRILE. NO OTHER ACUTE CHANGE FOR THE SHIFT, PT HAS BEEN CALLING APPROPRIATELY HAS BEEN UP IN THE CHAIR FOR MEALS. WILL REPORT TO ONCOMING SHIFT
[2024-09-25 03:55] VITALS: BP 118/68
--- NOTE | 2024-09-25 04:38 | NUR ---
SHIFT SUMMARY. PATIENT IS A&OX3; FORGETFUL AT TIMES. PATIENT IS ABLE TO MAKE HIS NEEDS KNOWN. PATIENT IS COOPERATIVE WITH MOST CARE ALTHOUGH REFUSED HIS 2100 MEDICATIONS; PT STATED "I DONT WANT TO TAKE STATINS", DISCUSSED WITH PATIENT METOPROLOL; PATIENTS PULSE 50'S TO 60'S BUT SUZI DOWN INTO THE 40'S AND PATIENT REFUSED MEDICATION-PULSE REMAINS TO BE IN THE 50'S TO 60'S WITH DRIPS INTO THE 40'S AT TIMES. PATIENT IS PLEASANT. BED IS LOCKED IN THE LOWEST POSITION WITH CALL LIGHT IN REACH. CARE IS ONGOING.
[2024-09-25 05:08] LABS: Hematocrit 27.1 % (37.0-53.0); Mean Corpuscular HGB 31.4 pg (26.0-34.0); Mean Corpuscular HGB Conc 33.2 g/dL (31.5-36.5); Mean Corpuscular Volume 94 fL (80-100); Mean Platelet Volume 12.3 fL (9.1-12.4); NRBC ABSOLUTE 0.02 K/mm3 (0.00-0.02); NRBC Auto 0.3 /100 WBC (0.0-0.2); Platelet Count 97 K/mm3 (150-400); RDW Coefficient Variation 18.3 % (11.7-14.2); RDW Standard Deviation 60.9 fL (35.1-46.3); Red Blood Cell Count 2.87 M/mm3 (4.30-5.90); White Blood Cell Count 7.26 K/mm3 (4.00-11.30)
[2024-09-25 07:53] VITALS: BP 121/76
[2024-09-25 08:19] VITALS: BP 119/71
--- NOTE | 2024-09-25 11:03 | NUR ---
PATIENT IS ALERT AND ORIENTED, FORGETFUL AT TIMES. HE REFUSED 2/[address] CABRAL EXPLAINED THE MEDICATIONS TO THE PATIENT IN DETAIL AND THE PATIENT CONTINUED TO REFUSE TO TAKE HIS MEDICATIONS. BEDBATH THIS AM. UP IN THE CHAIR AT THIS TIME. TRANFERRED TO THE CHAIR WITH 1PA/SBA HELP WITH LINES. REDNESS NOTED ON COCCYX THIS MORNING, MEPILEX PLACED. PILLOWS PLACED UNDER THE PATIENT IN THE CHAIR TO TAKE PRESSURE OFF HIS COCCYX. DRY, FLAKY SKIN NOTED ON THE PATIENT'S FEET, SCRUBBED DURING THE BEDBATH, CLEAN SOCKS PLACED. WILL CONTINUE TO MONITOR
[2024-09-25 12:52] VITALS: BP 111/68
[2024-09-25] MEDS ORDERED: METO25ER PO (13:44)
[2024-09-25] MEDS ORDERED: ATOR40TA PO (13:44)
[2024-09-25] MEDS ORDERED: CLOP75 PO (13:44)
[2024-09-25] MEDS ORDERED: PANT40 PO (13:45)
--- NOTE | 2024-09-25 16:13 | NUR ---
PATIENT DISCHARGED AT 16:13. THE PATIENT'S FRIEND CAME TO GIVE HIM A RIDE HOME. PUSHED OUT TO THE PATIENT ENTRANCE IN A WHEELCHAIR BY THE JACKSCREW MAN.
== END 2024-09-25 16:23 | disposition home or self-care (01) | DRG 281 ==
LOC: ER 12:14 → ERHOLD 18:10 → PCU 18:10 → EDBEDREQ 18:18 → PCU 21:15
PROVIDERS: Internal Medicine; Nurse Practitioner Acute Care; Student in an Organized Health Care Education/Training Program; ADMIT Student in an Organized Health Care Education/Training Program
PROC: 30233N1 Transfusion of Nonautologous Red Blood Cells into Peripheral Vein, Percutaneous Approach (ICD-10-PCS; principal; 2024-09-24)
DX: I21.4 Non-ST elevation (NSTEMI) myocardial infarction (principal); I48.20 Chronic atrial fibrillation, unspecified; R33.8 Other retention of urine; I73.9 Peripheral vascular disease, unspecified; G47.33 Obstructive sleep apnea (adult) (pediatric); I10 Essential (primary) hypertension; D69.6 Thrombocytopenia, unspecified; D63.8 Anemia in other chronic diseases classified elsewhere; N40.1 Benign prostatic hyperplasia with lower urinary tract symptoms; Z96.0 Presence of urogenital implants; I34.0 Nonrheumatic mitral (valve) insufficiency; F10.20 Alcohol dependence, uncomplicated; F03.A0 Unspecified dementia, mild, without behavioral disturbance, psychotic disturbance, mood disturbance, and anxiety; Z87.19 Personal history of other diseases of the digestive system; Z90.49 Acquired absence of other specified parts of digestive tract; Z87.440 Personal history of urinary (tract) infections; Z79.899 Other long term (current) drug therapy; Z99.89 Dependence on other enabling machines and devices; Z98.62 Peripheral vascular angioplasty status; Z86.19 Personal history of other infectious and parasitic diseases
CPT/HCPCS: 36415; 36430; 71046; 80048; 80053; 81001; 83735; 84484; 85014; 85018; 85025; 85027; 85520; 85610; 86850; 86900; 86901; 86923; 87086; 93005; 93010; 96365; 97161; 97165; 99285-25; A9270; C8929; J1644; J3480; J7030; P9016; Q9957